=== PATIENT | male | born 1965 | race African-American/Black ===

== ENCOUNTER 2022-12-07 16:51 | Emergency (ER) | payer MEDICAID ==
[~2022-12-07] VITALS: Ht 180.3 cm; Wt 104.0 kg
[2022-12-07] MEDS ORDERED: ACETAMINOPHEN 325MG TABLET PO ONE (18:45)
[2022-12-07] MEDS ORDERED: IBUPROFEN 400MG TABLET PO ONE (18:45)
[2022-12-07] MEDS ORDERED: LIDOCAINE 5% PATCH TOP SCH (18:45)
[2022-12-07] MEDS ORDERED: ACET-2708 MT (19:27)
[2022-12-07] MEDS ORDERED: IBUP-2028 MT (19:27)
[2022-12-07] MEDS ORDERED: LIDO700A30 TP (19:27)
[2022-12-07 19:47] VITALS: BP 139/84
== END 2022-12-07 19:49 | disposition home or self-care (01) ==
LOC: ER 16:51
DX: M54.9 Dorsalgia, unspecified (principal); V43.62XA Car passenger injured in collision with other type car in traffic accident, initial encounter; Y93.89 Activity, other specified; Y92.89 Other specified places as the place of occurrence of the external cause; Y99.8 Other external cause status
CPT/HCPCS: 99284

== ENCOUNTER 2023-10-02 23:47 | Emergency (ER) | payer MEDICAID ==
[~2023-10-02] VITALS: Ht 180.3 cm; Wt 109.0 kg
[~2023-10-02 23:47] MED LIST: ACET-2708 MT; IBUP-2028 MT; LIDO700A30 TP
[2023-10-03 00:41] VITALS: BP 150/96; PULSE 85; RESP 16; TEMP 98.2; O2SAT 95
[2023-10-03 02:57] LABS: BASOPHILS % 0.9 % (0.0-2.0); EOSINOPHILS % 1.9 % (0.0-5.0); HEMATOCRIT. 42.4 % (42.0-52.0); HEMOGLOBIN. 14.7 g/dL (14.0-18.0); LYMPHOCYTES % 21.1 % (20.0-50.0); MEAN CORPUSCULAR HEMOGLOBIN 29.1 pg (28.0-32.0); MEAN CORPUSCULAR HGB CONC 34.7 g/dL (31.0-37.0); MEAN CORPUSCULAR VOLUME 83.8 fL (80.0-94.0); MEAN PLATELET VOLUME 7.2 fl (7.4-10.4); MONOCYTES % 11.6 % (2.0-8.0); NEUTROPHILS % 64.5 % (40.0-76.0); PLATELET 360 x1000/uL (130-400); RED BLOOD CELL COUNT 5.05 mill/uL (4.7-6.1); WHITE BLOOD COUNT 11.4 x1000/uL (4.5-11.0)
[2023-10-03] MEDS ORDERED: D-ME473S50 PO (03:06)
[2023-10-03] MEDS ORDERED: AMOX1TAB16 MT (03:06)
== END 2023-10-03 04:09 | disposition home or self-care (01) ==
LOC: ER 23:57 → CANBEDREQ 10-03 02:10 → ER 10-03 04:09
DX: J20.9 Acute bronchitis, unspecified (principal); E78.00 Pure hypercholesterolemia, unspecified; Z79.899 Other long term (current) drug therapy
CPT/HCPCS: 36415; 71045; 85025; 99284